=== PATIENT | female | born 1985 | race Hispanic/Latino ===

== ENCOUNTER 2023-10-29 17:47 | Emergency (ER) | payer OTHER ==
[~2023-10-29] VITALS: Ht 177.8 cm; Wt 104.3 kg
[2023-10-29 18:22] VITALS: BP 125/96
[2023-10-29] MEDS ORDERED: PERCOCET 5/325M1 TAB PO (19:01)
[2023-10-29] MEDS ORDERED: BACTRIM DS1 TAB PO (19:01)
[2023-10-29 19:17] VITALS: BP 125/96
== END 2023-10-29 19:17 | disposition home or self-care (01) | DRG 603 ==
LOC: ED 17:47
DX: L05.01 Pilonidal cyst with abscess (principal)